=== PATIENT | female | born 1995 | race Caucasian/White ===

== ENCOUNTER 2018-06-08 16:06 | Emergency (ER) | payer OTHER ==
[~2018-06-08] VITALS: Ht 172.7 cm; Wt 113.4 kg
[2018-06-08 16:15] VITALS: BP 135/83; Ht 172.7 cm; Wt 113.4 kg
== END 2018-06-08 17:21 | disposition home or self-care (01) ==
LOC: ED 16:06
DX: S93.401A Sprain of unspecified ligament of right ankle, initial encounter (principal); W22.8XXA Striking against or struck by other objects, initial encounter; Y93.01 Activity, walking, marching and hiking; Y92.512 Supermarket, store or market as the place of occurrence of the external cause; Y99.8 Other external cause status

== ENCOUNTER 2018-07-08 00:21 | Emergency (ER) | payer OTHER ==
[~2018-07-08] VITALS: Ht 172.7 cm; Wt 113.4 kg
[2018-07-08 00:28] VITALS: Ht 172.7 cm; Wt 113.4 kg
[2018-07-08 02:08] VITALS: BP 128/63
== END 2018-07-08 02:08 | disposition home or self-care (01) ==
LOC: ED 00:21
DX: S82.402A Unspecified fracture of shaft of left fibula, initial encounter for closed fracture (principal); J45.909 Unspecified asthma, uncomplicated; W01.0XXA Fall on same level from slipping, tripping and stumbling without subsequent striking against object, initial encounter; Y93.89 Activity, other specified; Y92.89 Other specified places as the place of occurrence of the external cause; Y99.8 Other external cause status